=== PATIENT | female | born 1945 | race Caucasian/White ===

== ENCOUNTER 2017-01-22 13:36 | Emergency (ER) | payer OTHER ==
[~2017-01-22] VITALS: Ht 165.1 cm; Wt 64.4 kg
[2017-01-22] MEDS ORDERED: LISINOPRIL10 MG PO (14:26)
[2017-01-22] MEDS ORDERED: ASPIR 8181 MG PO (14:27)
[2017-01-22] MEDS ORDERED: COREG6.25 MG PO (14:27)
[2017-01-22] MEDS ORDERED: ZETIA10 MG PO (14:29)
[2017-01-22 14:31] LABS: ABSOLUTE NEUTROPHILS 5.1 thou/uL (1.4-8.2); BASOPHILS 0.5 % (0.0-2.0); EOSINOPHILS 0.8 % (0.0-3.0); HEMATOCRIT 44.8 % (37.0-47.0); HEMOGLOBIN 15.1 gm/dL (12.0-15.0); LYMPHOCYTES 28.3 % (24.0-44.0); MCH 30.7 pg (26.0-34.0); MCHC 33.6 g/dL (28.0-37.0); MCV 91.2 fL (80.0-100.0); MONOCYTES 9.5 % (1.0-8.0); PLATELET COUNT 233 thou/uL (150-400); POLYS 60.9 % (36.0-66.0); RBC 4.91 mil/uL (4.20-5.00); RDW 13.3 % (10.5-14.5); WBC 8.3 thou/uL (4.0-11.0)
[2017-01-22 14:32] LABS: MANUAL DIFF NO
[2017-01-22 14:44] LABS: CALCIUM 9.6 mg/dL (8.5-10.1); CREATININE 0.9 mg/dL (0.6-1.0)
[2017-01-22 14:46] LABS: PROTIME 10.1 Seconds (9.3-11.4)
[2017-01-22] MEDS ORDERED: COLCHICINE0.6 MG PO (15:43)
[2017-01-22 15:47] VITALS: BP 121/52
== END 2017-01-22 15:55 | disposition home or self-care (01) ==
LOC: ER 13:36
PROVIDERS: Physician Assistant
DX: M79.672 Pain in left foot (principal); J05.0 Acute obstructive laryngitis [croup]; I25.2 Old myocardial infarction; I10 Essential (primary) hypertension; F10.99 Alcohol use, unspecified with unspecified alcohol-induced disorder; Z95.5 Presence of coronary angioplasty implant and graft

== ENCOUNTER 2017-01-25 13:09 | Emergency (ER) | payer OTHER ==
[~2017-01-25] VITALS: Ht 165.1 cm; Wt 64.4 kg
[~2017-01-25 13:09] MED LIST: ASPIR 8181 MG PO; COLCHICINE0.6 MG PO; COREG6.25 MG PO; LISINOPRIL10 MG PO; ZETIA10 MG PO
[2017-01-25 15:15] LABS: ABSOLUTE NEUTROPHILS 5.5 thou/uL (1.4-8.2); BASOPHILS 0.3 % (0.0-2.0); EOSINOPHILS 0.7 % (0.0-3.0); HEMATOCRIT 44.6 % (37.0-47.0); HEMOGLOBIN 15.1 gm/dL (12.0-15.0); LYMPHOCYTES 32.7 % (24.0-44.0); MANUAL DIFF NO; MCH 30.5 pg (26.0-34.0); MCHC 33.8 g/dL (28.0-37.0); MCV 90.2 fL (80.0-100.0); MONOCYTES 10.9 % (1.0-8.0); PLATELET COUNT 237 thou/uL (150-400); POLYS 55.4 % (36.0-66.0); RBC 4.94 mil/uL (4.20-5.00); RDW 13.5 % (10.5-14.5); WBC 9.9 thou/uL (4.0-11.0)
[2017-01-25 15:19] LABS: CALCIUM 9.9 mg/dL (8.5-10.1); CREATININE 0.8 mg/dL (0.6-1.0); POTASSIUM 3.8 mmol/L (3.5-5.1)
[2017-01-25] MEDS ORDERED: ULTRAM 50MG TAB50 MG PO (17:11)
[2017-01-25 17:29] VITALS: BP 164/69
== END 2017-01-25 17:31 | disposition home or self-care (01) ==
LOC: ER 13:09
PROVIDERS: Nurse Practitioner
DX: M25.572 Pain in left ankle and joints of left foot (principal); I10 Essential (primary) hypertension; I25.2 Old myocardial infarction; G35 Multiple sclerosis; F10.99 Alcohol use, unspecified with unspecified alcohol-induced disorder; Z95.5 Presence of coronary angioplasty implant and graft; Z88.1 Allergy status to other antibiotic agents; Z79.82 Long term (current) use of aspirin; Z88.4 Allergy status to anesthetic agent; Z88.8 Allergy status to other drugs, medicaments and biological substances

== ENCOUNTER 2018-01-15 17:37 | Inpatient (IN) | payer OTHER ==
[~2018-01-15] VITALS: Ht 162.6 cm; Wt 64.0 kg
--- NOTE | ~2018-01-15 | EKG ---
[place] [address] [facility] [place] [address] ELECTROCARDIOGRAM REPORT Name: SHADI DOMINGUEZ Room #: 458-P [facility] M.R.#: [id number] Admission: 01/15/18 Attend Phys: Endy Bro MD Discharge: Date of : 49 Report #: [id number] THIS REPORT FOR: //name// [facility] ED Test Date: 2018-01-15 Test Time: 18:26:15 Pat Name: SHADI DOMINGUEZ Department: Room: Gender: F Security Compliance Specialist: RAO : 1945 Requested By: Amrik Roper Order Number: [id number] MD: Jai Jones Measurements Intervals [place] Rate: 52 P: 39 LA: 129 QRS: -15 QRSD: 104 T: 18 QT: 502 QTc: 467 Interpretive Statements Sinus bradycardia Inferior infarct, old Poor R wave progression Compared to ECG 05/02/1992 07:07:00 Inferior Q waves are now present Electronically Signed On 01-16-2018 8:11:31 CDT by Jai Jones [email or web address] <ELECTRONICALLY SIGNED> By: Jai Jones MD, [facility] 01/16/18 0811 [id number] Jai Jones MD, [facility] /EPI
[~2018-01-15 17:37] MED LIST changes: +ULTRAM 50MG TAB50 MG PO
[2018-01-15 17:51] LABS: URINE BILIRUBIN NEGATIVE (Negative); URINE BLOOD NEGATIVE (Negative); URINE CLARITY CLEAR; URINE COLOR YELLOW; URINE GLUCOSE-RANDOM* NEGATIVE (Negative); URINE KETONES NEGATIVE (Negative); URINE LEUKOCYTES-REFLEX NEGATIVE (Negative); URINE NITRITE-REFLEX NEGATIVE (Negative); URINE PROTEIN (DIPSTICK) NEGATIVE (Negative); URINE UROBILINOGEN 0.2 E.U./dl (0.2-1.0)
[2018-01-15 17:56] VITALS: BP 183/71
[2018-01-15 18:25] LABS: ABSOLUTE NEUTROPHILS 7.4 thou/uL (1.4-8.2); BASOPHILS 0.8 % (0.0-2.0); EOSINOPHILS 0.7 % (0.0-3.0); HEMATOCRIT 46.7 % (37.0-47.0); HEMOGLOBIN 15.5 gm/dL (12.0-15.0); LYMPHOCYTES 30.7 % (24.0-44.0); MCH 29.8 pg (26.0-34.0); MCHC 33.2 g/dL (28.0-37.0); MCV 89.8 fL (80.0-100.0); MONOCYTES 10.1 % (1.0-8.0); PLATELET COUNT 264 thou/uL (150-400); POLYS 57.7 % (36.0-66.0); RDW 13.6 % (10.5-14.5); WBC 12.8 thou/uL (4.0-11.0)
[2018-01-15] MEDS ORDERED: LIPITOR80 MG PO (18:25)
[2018-01-15] MEDS ORDERED: ZOLOFT 50 MG TA50 M1 PO (18:26)
[2018-01-15] MEDS ORDERED: CENTRUM SILVER1 EAC4 PO (18:26)
[2018-01-15] MEDS ORDERED: VITAMIN D2000 UNIT PO (18:26)
[2018-01-15] MEDS ORDERED: VITAMIN E400 UNIT PO (18:27)
[2018-01-15] MEDS ORDERED: FISH OIL 1,001000 M2 PO (18:27)
[2018-01-15] MEDS ORDERED: PROBIOTIC1 EAC1 PO (18:27)
[2018-01-15 18:43] LABS: CALCIUM 9.9 mg/dL (8.5-10.1); CREATININE 0.9 mg/dL (0.6-1.0); POTASSIUM 4.2 mmol/L (3.5-5.1)
[2018-01-15 18:46] LABS: ALBUMIN 4.3 g/dL (3.4-5.0); TOTAL BILIRUBIN 1.1 mg/dL (<0.1-1.0); TOTAL PROTEIN 7.8 g/dL (6.4-8.2)
[2018-01-15 21:02] VITALS: BP 165/70
[2018-01-15 22:04] VITALS: BP 156/62
[2018-01-16 04:53] VITALS: BP 141/67
[2018-01-16 07:17] VITALS: BP 138/55
[2018-01-16 16:11] VITALS: BP 134/74
[2018-01-16 19:59] VITALS: BP 133/55
[2018-01-17 05:58] LABS: BASOPHILS 0.4 % (0.0-2.0); EOSINOPHILS 1.3 % (0.0-3.0); HEMATOCRIT 40.7 % (37.0-47.0); HEMOGLOBIN 13.6 gm/dL (12.0-15.0); LYMPHOCYTES 28.9 % (24.0-44.0); MCH 30.2 pg (26.0-34.0); MCHC 33.5 g/dL (28.0-37.0); MCV 90.2 fL (80.0-100.0); MONOCYTES 11.8 % (1.0-8.0); PLATELET COUNT 224 thou/uL (150-400); POLYS 57.6 % (36.0-66.0); RBC 4.51 mil/uL (4.20-5.00); RDW 13.3 % (10.5-14.5); WBC 8.7 thou/uL (4.0-11.0)
[2018-01-17 06:11] LABS: CALCIUM 8.5 mg/dL (8.5-10.1); CREATININE 0.7 mg/dL (0.6-1.0); POTASSIUM 3.9 mmol/L (3.5-5.1)
[2018-01-17 07:25] VITALS: BP 150/60
[2018-01-17 08:00] VITALS: BP 150/60
[2018-01-17] MEDS ORDERED: MILK OF MA400 MG/5 M PO (15:45)
[2018-01-17] MEDS ORDERED: COLACE100 MG PO (15:45)
== END 2018-01-17 16:15 | disposition home or self-care (01) | DRG 392 ==
LOC: ER 17:37 → EROBS 20:15 → 4W 20:15
PROVIDERS: Hospitalist; Physician Assistant
DX: K58.1 Irritable bowel syndrome with constipation (principal); I10 Essential (primary) hypertension; F32.9 Major depressive disorder, single episode, unspecified; E78.5 Hyperlipidemia, unspecified; G35 Multiple sclerosis; I25.10 Atherosclerotic heart disease of native coronary artery without angina pectoris; K57.90 Diverticulosis of intestine, part unspecified, without perforation or abscess without bleeding; D72.829 Elevated white blood cell count, unspecified; F42.9 Obsessive-compulsive disorder, unspecified; F41.9 Anxiety disorder, unspecified; T40.2X5A Adverse effect of other opioids, initial encounter; K52.9 Noninfective gastroenteritis and colitis, unspecified; Z90.49 Acquired absence of other specified parts of digestive tract; Y92.89 Other specified places as the place of occurrence of the external cause; Z90.710 Acquired absence of both cervix and uterus; Z95.5 Presence of coronary angioplasty implant and graft; I25.2 Old myocardial infarction; Z79.899 Other long term (current) drug therapy; Z79.82 Long term (current) use of aspirin; Z88.8 Allergy status to other drugs, medicaments and biological substances; Z88.1 Allergy status to other antibiotic agents
CPT/HCPCS: 10040